=== PATIENT | female | born 1960 | race Caucasian/White ===

== ENCOUNTER 2017-07-02 20:50 | Emergency (ER) | payer OTHER ==
[~2017-07-02] VITALS: Ht 172.7 cm; Wt 94.3 kg
[2017-07-02] MEDS ORDERED: LISINOPRIL20 MG ORAL (21:09)
[2017-07-02] MEDS ORDERED: Tubing IV Cassette IV ONE (21:20)
[2017-07-02] MEDS ORDERED: Morphine Sulfate 4mg/ml Inj IVP ONE ×2 (21:30→22:30)
[2017-07-02 21:36] LABS: BASOPHILS % (AUTO) 0.7 % (0.0-2.0); EOSINOPHILS % (AUTO) 0.6 % (0.0-3.0); MEAN CORPUSCULAR HEMOGLOBIN 31.2 PG (27.0-31.0); MEAN CORPUSCULAR HGB CONC 34.1 G/DL (32.0-36.0); MEAN CORPUSCULAR VOLUME 91 FL (80-99); MEAN PLATELET VOLUME 6.9 FL (6.5-10.1); MONOCYTES % (AUTO) 7.3 % (1.0-10.0); NEUTROPHILS % (AUTO) 73.4 % (45.0-75.0); PLATELET COUNT 209 K/UL (150-450); RED CELL DISTRIBUTION WIDTH 11.7 % (11.6-14.8); WHITE BLOOD COUNT 12.7 K/UL (4.8-10.8)
[2017-07-02 21:51] LABS: TROPONIN I < 0.30 ng/mL (<=0.30)
[2017-07-02 21:54] LABS: ALANINE AMINOTRANSFERASE 27 U/L (3-33); ALBUMIN/GLOBULIN RATIO 1.8 (1.0-2.7); ANION GAP 18 (5-15); ASPARTATE AMINO TRANSFERASE 21 U/L (5-40); CALCIUM 9.9 mg/dL (8.6-10.2); CARBON DIOXIDE 21 mEQ/L (20-30); CHLORIDE 99 mEQ/L (98-107); CREATININE 0.8 mg/dL (0.5-0.9); GLOMERULAR FILTRATION RATE > 60 mL/min (>60); HEMOLYSIS 4; LIPASE 40 U/L (< 60); POTASSIUM 3.4 mEQ/L (3.4-4.9); SODIUM 138 mEQ/L (135-145); TOTAL PROTEIN 7.3 g/dL (6.6-8.7)
--- NOTE | 2017-07-02 22:12 | Emergency Room Report ---
History of Present Illness General Chief Complaint: Abdominal Pain Source: Patient Present Illness HPI 57-year-old female presents to ED complaining of abdominal pain. States the pain started proximal 2 hours prior to arrival. Pain is epigastric, sharp, 9/10 , radiating through entire abdomen. Denies fevers or chills. Admits to nausea and vomiting. Denies chest pain or shortness of breath. Denies diarrhea. No other aggravating relieving factors. Denies any other associated symptoms Allergies: Coded Allergies: No Known Allergies (Unverified , 07/02/17) Patient History Past Medical History: none Past Surgical History: none Pertinent Family History: none Social History: Denies: smoking, alcohol use, drug use Now: No Immunizations: UTD Reviewed Nursing Documentation: PMH: Agreed, PSxH: Agreed Nursing Documentation-PMH Hx Hypertension: Yes Review of Systems All Other Systems: negative except mentioned in HPI Physical Exam Vital Signs Date Time Temp Pulse Resp B/P (MAP) Pulse Ox O2 Delivery O2 Flow Rate FiO2 07/02/17 20:55 97.5 24 150/76 99 Room Air Sp02 EP Interpretation: reviewed, normal General Appearance: no apparent distress, alert, GCS 15, non-toxic, obese Head: normocephalic, atraumatic Eyes: bilateral eye normal inspection, bilateral eye PERRL ENT: hearing grossly normal, normal pharynx, no angioedema, normal voice Neck: full range of motion, supple/symm/no masses Respiratory: chest non-tender, lungs clear, normal breath sounds, speaking full sentences Cardiovascular #1: regular rate, rhythm, no edema Cardiovascular #2: 2+ carotid (R), 2+ carotid (L), 2+ radial (R), 2+ radial (L) , 2+ dorsalis pedis (R), 2+ dorsalis pedis (L) Gastrointestinal: normal bowel sounds, soft, non-distended, no guarding, no rebound, tenderness - epigastric Rectal: deferred Genitourinary: normal inspection, no CVA tenderness Musculoskeletal: back normal, gait/station normal, normal range of motion, non- tender Neurologic: alert, oriented x3, responsive, motor strength/tone normal, sensory intact, speech normal Psychiatric: judgement/insight normal, memory normal, mood/affect normal, no suicidal/homicidal ideation Reflexes: 3+ bicep (R), 3+ bicep (L), 3+ tricep (R), 3+ tricep (L), 3+ knee (R) , 3+ knee (L) Skin: normal color, no rash, warm/dry, well hydrated Lymphatic: no adenopathy Medical Decision Making Diagnostic Impression: Primary Impression: Abdominal pain Qualified Codes: R10.13 - Epigastric pain Additional Impression: Bradycardia ER Course Hospital Course 57-year-old female presents to ED with abdominal pain and vomiting Differential diagnoses include: BPH, cystitis, pyelonephritis, kidney stone Clinical course 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 After initial history and physical I ordered labs, IV fluids, UA, pain medication and CT scan Labs - noted leukocytosis, Hb/Hct stable. electrolytes ok, LFTs ok, trop negative CT abdomen and pelvis - distended GB, no stones EKG - sinus bradycardia, no acute ischemic changes interpreted by me Patient continues to have pain after multiple rounds of pain medication. Patient is bradycardic in the 40s but is currently not on any calcium channel davide or beta davide. I believe patient should be admitted for further evaluation Case discussed with Dr. Ward and he agreed to accept the patient to his service for further care and support I feel this is a highly complex case requiring extensive working including EKG/ Rhythm strip, Xray/CT/US, Blood/urine lab work, repeat exams while in ED, and administration of strong opiates/narcotics for pain control, admission to hospital or close patient follow up. Diagnosis - abdominal pain, bradycardia Patient admitted to telemetry in serious condition Labs Test 07/02/17 21:10 White Blood Count 12.7 K/UL (4.8-10.8) Red Blood Count 4.80 M/UL (4.20-5.40) Hemoglobin 14.9 G/DL (12.0-16.0) Hematocrit 43.8 % (37.0-47.0) Mean Corpuscular Volume 91 FL (80-99) Mean Corpuscular Hemoglobin 31.2 PG (27.0-31.0) Mean Corpuscular Hemoglobin Concent 34.1 G/DL (32.0-36.0) Red Cell Distribution Width 11.7 % (11.6-14.8) Platelet Count 209 K/UL (150-450) Mean Platelet Volume 6.9 FL (6.5-10.1) Neutrophils (%) (Auto) 73.4 % (45.0-75.0) Lymphocytes (%) (Auto) 18.0 % (20.0-45.0) Monocytes (%) (Auto) 7.3 % (1.0-10.0) Eosinophils (%) (Auto) 0.6 % (0.0-3.0) Basophils (%) (Auto) 0.7 % (0.0-2.0) Sodium Level 138 mEQ/L (135-145) Potassium Level 3.4 mEQ/L (3.4-4.9) Chloride Level 99 mEQ/L (98-107) Carbon Dioxide Level 21 mEQ/L (20-30) Anion Gap 18 (5-15) Blood Urea Nitrogen 16 mg/dL (7-23) Creatinine 0.8 mg/dL (0.5-0.9) Estimat Glomerular Filtration Rate > 60 mL/min (>60) Glucose Level 143 mg/dL (74-106) Calcium Level 9.9 mg/dL (8.6-10.2) Total Bilirubin 0.3 mg/dL (0.0-1.2) Aspartate Amino Transf (AST/SGOT) 21 U/L (5-40) Alanine Aminotransferase (ALT/SGPT) 27 U/L (3-33) Alkaline Phosphatase 69 U/L (35-104) Troponin I < 0.30 ng/mL (<=0.30) Total Protein 7.3 g/dL (6.6-8.7) Albumin 4.7 g/dL (3.5-5.2) Globulin 2.6 g/dL Albumin/Globulin Ratio 1.8 (1.0-2.7) Lipase 40 U/L (< 60) EKG Diagnostic Results Rate: bradycardiac Rhythm: NSR ST Segments: no acute changes ASA given to the pt in ED: No Rhythm Strip Diag. Results EP Interpretation: yes Rhythm: NSR, no PVC's, no ectopy CT/MRI/US Diagnostic Results CT/MRI/US Diagnostic Results : Imaging Test Ordered: CT A/P Impression distended GB, no stones. Last Vital Signs Date Time Temp Pulse Resp B/P (MAP) Pulse Ox O2 Delivery O2 Flow Rate FiO2 07/02/17 21:52 97.6 07/02/17 20:55 24 150/76 99 Room Air Status: improved Disposition: ADMITTED INPATIENT Condition: Serious DEBRA BUSBY M.D. Jul 02, 2017 22:12
[2017-07-02 22:15] VITALS: BP 154/70
[2017-07-02 23:35] VITALS: BP 151/55
[2017-07-03] VITALS (8 sets, daily range): BP systolic 123–168; BP diastolic 62–72
[2017-07-03] MEDS ORDERED: HYDROmorphone 1 MG in NS 55 ML IV ONE (00:30)
[2017-07-03] MEDS ORDERED: HYDROmorphone 1mg/ml Carpuject ONE (00:30)
[2017-07-03] MEDS ORDERED: Norco 10mg/325mg tab ORAL PRN (01:45)
[2017-07-03] MEDS ORDERED: Morphine Sulfate 2mg/ml Inj IVP PRN (01:45)
[2017-07-03] MEDS ORDERED: D5 1/2NS w/KCl 20mEq 1,000 ML IV SCH (03:00)
[2017-07-03 04:15] LABS: APPEARANCE,URINE CLEAR; KETONES,URINE 3+ (NEGATIVE); LEUKOCYTE ESTERASE ,URINE NEGATIVE (NEGATIVE); NITRITE,URINE NEGATIVE (NEGATIVE); PH,URINE 5 (4.5-8.0); PROTEIN,URINE NEGATIVE (NEGATIVE); UROBILINOGEN,URINE NORMAL MG/DL (0.0-1.0)
[2017-07-03 04:17] LABS: BACTERIA,URINE FEW /HPF; SQUAMOUS EPITHELIAL CELL,UR FEW /LPF (NONE/OCC); WBC,URINE 0-2 /HPF (0 - 2)
[2017-07-03] MEDS ORDERED: Lisinopril 20mg tab ORAL SCH (09:00)
[2017-07-03] MEDS ORDERED: Heparin 5000 units/ml inj SUBQ SCH (09:00)
--- NOTE | 2017-07-03 09:13 | Diagnostic Imaging Report ---
Indication: Abdominal pain with nausea Comparison: None Technique: Contiguous helical CT images through the abdomen and pelvis was performed with intravenous contrast only. Oral contrast was not given as per requesting physician. Axial, coronal and sagittal reconstructions were reformatted. Findings: No focal lesions are seen within the liver. Gallbladder is moderately distended without radiopaque gallstones or common bile duct dilation. No gallbladder wall thickening or pericholecystic fluid. Trace central intrahepatic biliary ductal dilation versus mild periportal edema is present. Correlate with focal right upper quadrant tenderness and consider right upper quadrant ultrasound for further evaluation as indicated. Spleen is normal. Pancreas is normal. Portal vein is patent. Adrenal glands are normal. Kidneys are normal. There is a small left renal cyst noted. No hydronephrosis or hydroureter. No bowel obstruction. High density material is seen in the non-inflamed appendix. No evidence of acute appendicitis. Diverticulosis without diverticulitis is seen. Urinary bladder is normal. Uterus is normal. Aorta is normal. No significant lymphadenopathy. Incidental findings also include a 3.6 mm pulmonary noncalcified right lower lobe subpleural nodule which is likely postinfectious/inflammatory in nature. Bibasilar atelectasis. Impression: Moderately distended gallbladder without CT evidence of gallstones or common bile duct dilation. Tracer intrahepatic biliary ductal dilation versus mild periportal edema is present. Correlate with focal right upper quadrant tenderness and consider right upper quadrant ultrasound for further evaluation as indicated. Otherwise no acute findings.
[2017-07-03] MEDS ORDERED: PEPCID20 MG ORAL (12:07)
[2017-07-03] MEDS ORDERED: TRAMADOL HCL50 MG ORAL (12:07)
[2017-07-03] MEDS ORDERED: ZOFRAN 4 MG4 MG/2 ML IV (12:07)
--- NOTE | 2017-07-04 19:18 | Cardiology Report ---
APPROVED REPORT EKG Measurement Heart [id number] Ectopic atrial rhythm Anterior infarct, age undetermined Abnormal ECG
== END 2017-07-03 12:21 | disposition home or self-care (01) ==
LOC: EMR 21:35 → EDBEDREQ 07-03 00:10 → EMR 07-03 12:21
DX: R10.13 Epigastric pain (principal); R00.1 Bradycardia, unspecified; R11.2 Nausea with vomiting, unspecified; I10 Essential (primary) hypertension
CPT/HCPCS: 36415; 74177; 80053; 81003; 83690; 84484; 85025; 93005; 99285; J1170; J1644; J2270; J2405; Q9967; S0028